=== PATIENT | female | born 1975 | race Caucasian/White ===

== ENCOUNTER 2018-10-31 16:51 | Emergency (ER) | payer OTHER ==
[2018-10-31 16:55] VITALS: BP 133/61; PULSE 105; TEMP 98; BMI 24.2
[2018-10-31] MEDS ORDERED: predniSONE 20 MG TABLET (UD) PO ONE (17:41)
[2018-10-31] MEDS ORDERED: ALBUTEROL SO4 2.5/IPRATROPIUM 0.5 INH SOL 3 ML VIAL.NEB. NEB ONE ×2 (17:41→17:46)
--- NOTE | 2018-10-31 17:42 | PDOC ---
History of Present Illness - General Chief Complaint: Respiratory Stated Complaint: DIFFICULTY BREATHING/FEVER Time Seen by Provider: 10/31/18 17:28 History Source: Patient Exam Limitations: No Limitations (cough and fever X 1wk) - History of Present Illness Associated Symptoms: reports: cough, fever/chills. denies: headaches, loss of appetite, malaise, nausea/vomiting, shortness of breath Past History - Travel Traveled outside of the country in the last 30 days: No Close contact w/someone who was outside of country & ill: No - Past Medical History Allergies/Adverse Reactions: Allergies Allergy/AdvReac Type Severity Reaction Status Date / Time No Known Allergies Allergy Verified 10/31/18 16:55 Home Medications: Ambulatory Orders Albuterol Sulfate Inhaler - [Ventolin HFA Inhaler -] 2 inh PO Q4H #1 inh Benzonatate [Tessalon Pearls -] 100 mg PO TID #21 capsule 10/31/18 Ibuprofen 800 mg PO ACDIN #21 tablet 10/31/18 predniSONE [Deltasone -] 20 mg PO DAILY 4 Days #8 tablet 10/31/18 COPD: No - Suicide/Smoking/Psychosocial Hx Smoking History: Never smoked Review of Systems - Review of Systems Constitutional: Yes: Fever. No: Chills HEENTM: No: Nose Congestion Respiratory: Yes: Cough, Shortness of Breath, Wheezing, Productive cough. No: SOB with Exertion, SOB at Rest, Stridor Cardiac (ROS): No: Chest Pain Neurological: No: Dizziness *Physical Exam - Vital Signs Last Vital Signs Temp Pulse Resp BP Pulse Ox 98 F 105 H 20 133/61 99 10/31/18 16:52 10/31/18 16:52 10/31/18 16:52 10/31/18 16:52 10/31/18 16:52 - Physical Exam HEENT: positive: EOMI Neck: positive: Supple Respiratory/Chest: positive: Rhonchi, Wheezing Cardiovascular: positive: Regular Rhythm, Regular Rate, S1, S2 Musculoskeletal: positive: Normal Inspection Extremity: positive: Normal Capillary Refill Moderate Sedation - Procedure Monitoring Vital Signs: Procedure Monitoring Vital Signs Temperature 98 F 10/31/18 16:52 Pulse Rate 105 H 10/31/18 16:52 Respiratory Rate 20 10/31/18 16:52 Blood Pressure 133/61 10/31/18 16:52 O2 Sat by Pulse Oximetry (%) 99 10/31/18 16:52 ED Treatment Course - RADIOLOGY Radiology Studies Ordered: Category Date Time Status CHEST PA & LAT [RAD] Stat Radiology 10/31/18 17:38 Ordered Medical Decision Making - Medical Decision Making 10/31/18 17:41 43y/o F with h/o asthma--denies prior ETT or intubation p.w cough, fever, chest tightness X 1wk, last asthma exercabation many years ago per pt. Inhaler has . She denies abd pain, recent travel, dizziness. exam with inspiratory wheeze and course rhonchi in lung base nebs 10/31/18 18:57 prelim cxr no PNA given short course of prednisone and antitussive supportive measures 10/31/18 19:59 *DC/Admit/Observation/Transfer Diagnosis at time of Disposition: URI, acute - Discharge Dispostion Disposition: HOME Condition at time of disposition: Stable Decision to Admit order: No - Prescriptions Prescriptions: Albuterol Sulfate Inhaler - [Ventolin HFA Inhaler -] 2 inh PO Q4H #1 inh Benzonatate [Tessalon Pearls -] 100 mg PO TID #21 capsule Ibuprofen 800 mg PO ACDIN #21 tablet predniSONE [Deltasone -] 20 mg PO DAILY 4 Days #8 tablet - Referrals - Patient Instructions Printed Discharge Instructions: Common Cold - Post Discharge Activity
[2018-10-31] MEDS ORDERED: predniSONE 20 MG TABLET (UD) ONE (17:45)
[2018-10-31] MEDS ORDERED: IBUPROFEN 400 MG TABLET (FP) PO ONE (18:41)
== END 2018-10-31 20:03 | disposition home or self-care (01) ==
LOC: JERFT 16:51
PROC: 3E0F7GC Introduction of Other Therapeutic Substance into Respiratory Tract, Via Natural or Artificial Opening (ICD-10-PCS; principal; 2018-10-31)
DX: J06.9 Acute upper respiratory infection, unspecified (principal)
CPT/HCPCS: 71046-TC-FY; 84703; 94640; 99281-25